=== PATIENT | female | born 1975 | race Caucasian/White ===

== ENCOUNTER → 2021-06-03 11:19 | Outpatient (CLI) | payer MEDICAID, SELFPAY | PROVIDERS: Visit Provider Nurse Practitioner | DX: Z20.822 Contact with and (suspected) exposure to COVID-19 (principal) | CPT/HCPCS: C9803; U0003; U0005 ==

== ENCOUNTER 2022-01-15 08:02 | Emergency (ER) | payer MEDICAID, SELFPAY ==
[2022-01-15 08:10] VITALS: BP 140/91; PULSE 91; RESP 19; TEMP 37; O2SAT 98; BMI 22.2
--- NOTE | 2022-01-15 08:10 | XR_ITS ---
FINAL REPORT CLINICAL HISTORY: pain FINDINGS: RIGHT SHOULDER Three views demonstrate no acute fracture or dislocation. The visualized joint spaces are normally aligned. The soft tissues are unremarkable. IMPRESSION: No acute process. Reviewed, Interpreted and Dictated by Sunny Matthews MD Transcribed by Vandana Smith Authenticated and [facility]
--- NOTE | 2022-01-15 08:39 | HMH.EDUTC ---
[facility] [place] Disposition Clinical Impression: Shoulder strain Qualifiers: Encounter type: initial encounter Laterality: right Qualified Code(s): S46.911A - Strain of unspecified muscle, fascia and tendon at shoulder and upper arm level, right arm, initial encounter Disposition: Home, Self-Care Condition on Discharge: Good Instructions: DI for Shoulder Pain, DI for Muscle Spasm Additional Instructions: *Ibuprofen sarah 6 hours with meal as needed for pain/inflammation if you can take it if not you may take Tylenol *Not additional anti-inflammatory like motrin, aleve, advil with the above amount of ibuprofen. You can still take Tylenol every 4 hours as needed if you need something else for pain *Ice 20 minutes every 2 hours for the first 48 hours after the initial injury followed by moist heat every 20 minutes 3-4 times a day to affected area *Muscle relaxer every 8 hours as needed for muscle spasms but remember, it WILL cause drowsiness You cannot take it and drive, operate machinery or care for small children. *Keep this area active, no movement leads to more stiffness, However take it easy and avoid heavy lifting pushing or pulling *Follow up with you family doctor if no improvement for further treatment Follow up with Orthopedics if pain continues Prescriptions: Cyclobenzaprine HCl [Flexeril 10mg tablet] 10 mg PO Q8HP PRN #15 tab PRN Reason: Muscle Spasm Transmission Status: Received by [facility] # methylPREDNISolone [Medrol 4mg tab] 4 mg PO DIRECTED #21 tab Transmission Status: Received by [facility] # Referrals: Provider,Referral, MD [Primary Care Provider] - As needed Forms: Work/School Release Medical Decision Making - Tino Inquiry Pt receiving controlled substance: No Tino was queried for this patient: No Vital Signs: 01/15/22 08:10 01/15/22 08:55 Temperature 98.6 F 98.6 F Temperature Source Oral Pulse Rate 91 H Pulse Rate [Right Brachial] 91 H Respiratory Rate 19 19 Blood Pressure 140/91 H Blood Pressure [Right Arm] 140/91 H Blood Pressure Mean [Right Arm] 107 Blood Pressure Source [Right Arm] Automatic Cuff Blood Pressure Position [Right Arm] Sitting 02 Sat by Pulse Oximetry 98 Oxygen Delivery Method Room Air - Radiology Data #1 Image(s): Shoulder Image Reviewed: Yes I reviewed the patient's radiology image Preliminary Findings: No Fracture Seen [facility] [place] HPI - General Stated complaint: rt shoulder pain Time Seen by Provider: 01/15/22 08:39 Mode of Arrival: Ambulatory Source of Information: Patient Limitations: No Limitations Description of Symptoms (Recalled from Triage Doc. by RN): PATIENT STATES SHE FEELS LIKE HER RIGHT SHOULDER IS OUT OF PLACE X 1 MONTH. SHE REPORTS HER BOYFRIEND WAS MASSAGING HER AND PUSHED TOO HARD HEENT Symptoms (Recalled from RN notes): No Resp Symptoms (Recalled from RN notes): No Skin Symptoms (Recalled from RN notes): No MS Symptoms (Recalled from RN notes): Yes Functional Status (Recalled from RN notes): WNL - History of Present Illness Provider Complaint: Patient state that she was 'horsing around and felt like she hurt her shoulder States that she told her boyfriend and he was rubbing it too hard and felt like he caused her shoulder to go out of place for about a month ago States that she has continued to have pain on and off and hurts when she raises it so work made her come in and get it checked - Related Data Previous Rx's Medication Instructions Recorded Cyclobenzaprine HCl [Flexeril 10mg 10 mg PO Q8HP PRN #15 tab 01/15/22 tablet] methylPREDNISolone [Medrol 4mg 4 mg PO DIRECTED #21 tab 01/15/22 tab] Allergies Allergy/AdvReac Type Severity Reaction Status Date / Time naproxen Allergy Verified 05/23/18 16:57 - Worker's Comp Is this a Worker's Comp case?: No [facility] History - Hepatitis A Screen Attestation statement:: This patient has been screened for Hepatitis A risk factors.
[2022-01-15 08:55] VITALS: BP 140/91; PULSE 91; RESP 19; TEMP 37; O2SAT 98
== END 2022-01-15 08:57 | disposition home or self-care (01) ==
PROVIDERS: Emergency Provider Nurse Practitioner
DX: S46.911A Strain of unspecified muscle, fascia and tendon at shoulder and upper arm level, right arm, initial encounter (principal); Z88.6 Allergy status to analgesic agent
CPT/HCPCS: 73030; 99212; G0463

== ENCOUNTER 2022-03-04 13:22 | Emergency (ER) | payer MEDICAID, SELFPAY ==
--- NOTE | 2022-03-04 13:14 | ECG_ITS ---
APPROVED REPORT Exam: Resting ECG HR:87 bpm ECG Measurements Heart Rate 87 AXES HI 157 P 76 QRSd 86 QRS 81 QT 345 T 66 QTc 390 Conclusion SINUS RHYTHM POSSIBLE LEFT ATRIAL ENLARGEMENT [-0.1mV P-WAVE IN V1/V2] POSSIBLE RIGHT VENTRICULAR CONDUCTION DELAY [RSR (QR) IN V1/V2] BORDERLINE ECG UNCONFIRMED REPORT Electronically signed by : Bola Oconnor MD 03/05/2022 11:25:22
[2022-03-04 13:22] VITALS: BP 137/96; PULSE 88; RESP 18; TEMP 37.1; O2SAT 98; BMI 24.8
--- NOTE | 2022-03-04 13:27 | HMH.EDGENADL ---
Discharge Plan Disposition Patient Disposition: Home, Self-Care Condition: Good Prescriptions Prescriptions: No Action cyclobenzaprine 10 MG tablet 10 mg PO Q8HP PRN (Reason: Muscle Spasm) Qty: 15 0RF methylprednisolone 4 MG tablet 4 mg PO DIRECTED Qty: 21 0RF Rx Instructions: Take as directed on package instructions Clinical Impressions Clinical Impression: Chest pain Discharge ED Provider: Larry Zarate General Adult HPI General Chief complaint: Chest Pain Stated complaint: chest pain Time Seen by Provider: 03/04/22 13:28 History of Present Illness HPI narrative: Patient is a 46-year-old female with past medical history of anxiety who presents emergency department for evaluation of chest pain. Chest pain onset was acute, occurring 30 minutes prior to arrival, substernal radiating to left shoulder. Patient states that she has no worse shortness of breath at her baseline as she is a smoker. Patient denies other acute complaints at this time. Related Data Previous Rx's Medication Instructions Recorded cyclobenzaprine 10 mg tablet 10 mg PO Q8HP PRN Muscle Spasm #15 01/15/22 tabs methylprednisolone 4 mg tablet 4 mg PO DIRECTED #21 tabs 01/15/22 Allergies Allergy/AdvReac Type Severity Reaction Status Date / Time naproxen Allergy Verified 05/23/18 16:57 [facility] PFS Social History Smoking Status: Current every day smoker tobacco type: cigarettes alcohol intake: never current occupational status: other ROS Obtained: Yes All systems reviewed & no additional complaints except as documented Physical Exam General General appearance: alert and in no apparent distress Head Head exam: atraumatic and normocephalic Eye Eye exam: Present PERRL and EOMI ENT ENT exam: Present mucous membranes moist Neck Neck exam: Present normal inspection Chest Chest inspection: Present normal inspection, symmetric chest wall rise and tenderness (Midline tenderness to palpation, no overlying bruising or fluctuance.) Respiratory Respiratory exam: Present normal lung sounds bilaterally; Absent respiratory distress Cardiovascular Cardiovascular exam: Present regular rate and normal rhythm Abdominal Exam Abdominal exam: Present soft; Absent tenderness Extremities Exam Extremities exam: Present normal inspection Neurological Exam Neurological exam: Present alert and oriented X3 Psychiatric Psychiatric exam: Present normal affect Skin Skin exam: Present warm and dry Medical Decision Making Tino Inquiry Pt receiving controlled substance: No Vital Signs: 03/04/22 13:22 03/04/22 13:38 Temperature 98.8 F Temperature Source Oral Pulse Rate 79 Pulse Rate [Left Radial] 88 Respiratory Rate 18 Blood Pressure 128/98 H Blood Pressure [Right Arm] 137/96 H Blood Pressure Mean [Right Arm] 109 Blood Pressure Source [Right Arm] Automatic Cuff Blood Pressure Position [Right Arm] Sitting 02 Sat by Pulse Oximetry 98 98 Oxygen Delivery Method Room Air Room Air Lab Data Lab Results 03/04/22 13:25: WBC 7.5, RBC 4.57, Hgb 13.3, Hct 43.1, MCV 94.4, MCH 29.1, MCHC 30.9 L, RDW 12.8, Plt Count 357, MPV 7.6, Neut % (Auto) 58.6, Lymph % (Auto) 33.3, [place] % (Auto) 5.2, Eos % (Auto) 1.8, Baso % (Auto) 1.0, Neut # (Auto) 4.4, Lymph # (Auto) 2.5, [place] # (Auto) 0.4, Eos # (Auto) 0.1, Baso # (Auto) 0.1 03/04/22 13:25: Sodium 142, Potassium 3.8, Chloride 109 H, Carbon Dioxide 26, Anion Gap 10.8, BUN 13, Creatinine 0.60, Estimated Creat Clear 117, Estimated GFR 109, Est GFR ( Amer) 131, Glucose 94, Calcium 9.5, Troponin I < 0.01 Result diagrams: 03/04/22 13:25 03/04/22 13:25 Orders (Tests/Meds): ED MEDICATIONS Generic Name Dose Route Start Last Admin Trade Name Freq PRN Reason Stop Dose Admin Sodium Chloride 10 ml 03/04/22 13:28 Sodium Chloride 0.9% 10ml Flush Syringe IV 04/03/22 13:27 NEEDED PRN Maintain IV Site Discontinued
[2022-03-04 13:28] VITALS: BMI 24.8
--- NOTE | 2022-03-04 13:28 | XR_ITS ---
FINAL REPORT CLINICAL HISTORY: chest pain COMPARISON: May 23, 2018 FINDINGS: Two views of the chest were obtained. The heart size and pulmonary vascularity are within normal limits. The mediastinum is normal. No acute pulmonary abnormality is identified. There is no pneumothorax. The bony thorax is intact. IMPRESSION: No active cardiopulmonary disease. Reviewed, Interpreted and Dictated by Agustin Tim III, MD Transcribed by Vandana Smith Authenticated and [facility]
[2022-03-04 13:38] VITALS: BP 128/98; PULSE 79; O2SAT 98
[2022-03-04 14:06] LABS: Basophils # 0.1 K/mm3 (0-0.2); Eosinophils # 0.1 K/mm3 (0.0-0.4); Eosinophils % 1.8 % (0.1-12.0); Hematocrit 43.1 % (37.0-47.0); Hemoglobin 13.3 g/dL (12.2-16.2); Lymphocytes # 2.5 K/mm3 (0.7-4.5); Lymphocytes % 33.3 % (10-50); Mean Corpuscular HGB Conc 30.9 g/dL (31.8-35.4); Mean Corpuscular Hemoglobin 29.1 pg (27.0-31.2); Mean Corpuscular Volume 94.4 fl (81-99); Mean Platelet Volume 7.6 fl (7.4-10.4); Monocytes # 0.4 K/mm3 (0.1-1.0); Monocytes % 5.2 % (1.7-9.3); Neutrophils # 4.4 K/mm3 (1.8-7.8); Neutrophils % 58.6 % (37.0-80.0); Platelet Count 357 K/mm3 (142-424); Red Blood Count 4.57 M/mm3 (4.20-5.40); Red Cell Distribution Width 12.8 % (11.5-17.5); White Blood Count 7.5 K/mm3 (4.8-10.8)
[2022-03-04 14:08] LABS: Chloride 109 mmol/L (98-107); Potassium 3.8 mmoL/L (3.5-5.1); Sodium 142 mmol/L (136-145)
[2022-03-04 14:11] LABS: Anion Gap 10.8 mEq/L (5-15); Blood Urea Nitrogen 13 mg/dl (7-17); Calcium 9.5 mg/dl (8.4-10.2); Carbon Dioxide 26 mmol/L (22.0-30.0); Creatinine Clearance Estimated 117 mL/min (50-200); Estimated Glomerular Filt Rate 109 ml/min (>60); GFR (African American) 131 ML/MIN (>60); Glucose 94 mg/dl (74-100)
[2022-03-04 14:28] LABS: Troponin I < 0.01 ng/ml (0.00-0.034)
--- NOTE | 2022-03-04 14:47 | PC.NURSE ---
Checked on patient to see if she had any needs. Only request was for a warm blanket, pt was given a warm blanket and repositioned; No other needs at this time;
[2022-03-04 16:00] VITALS: BP 133/93; PULSE 63; O2SAT 100
[2022-03-04 16:30] VITALS: BP 138/95; PULSE 62
--- NOTE | 2022-03-04 17:06 | ECG_ITS ---
APPROVED REPORT Exam: Resting ECG HR:63 bpm ECG Measurements Heart Rate 63 AXES PA 169 P 58 QRSd 95 QRS 50 QT 409 T 51 QTc 416 Conclusion SINUS RHYTHM WITH SINUS ARRHYTHMIA INCOMPLETE RIGHT BUNDLE BRANCH BLOCK [90+ ms QRS DURATION, TERMINAL R IN V1/V2, 40+ ms S IN I/aVL/V4/V5/V6] BORDERLINE ECG UNCONFIRMED REPORT Electronically signed by : Bola Oconnor MD 03/05/2022 11:25:16
[2022-03-04 17:40] VITALS: BP 115/77; PULSE 64; PULSE 70; O2SAT 99
--- NOTE | 2022-03-04 17:53 | HMH.EDGENADL ---
Discharge Plan Disposition Patient Disposition: Home, Self-Care Condition: Good Prescriptions Prescriptions: No Action cyclobenzaprine 10 MG tablet 10 mg PO Q8HP PRN (Reason: Muscle Spasm) Qty: 15 0RF methylprednisolone 4 MG tablet 4 mg PO DIRECTED Qty: 21 0RF Rx Instructions: Take as directed on package instructions Clinical Impressions Clinical Impression: Chest pain Stand Alone Forms Stand Alone Forms: Work/School Release Discharge ED Provider: Larry Zarate General Adult HPI General Chief complaint: Chest Pain Stated complaint: chest pain Time Seen by Provider: 03/04/22 13:28 Mode of Arrival: Ambulatory Source of Information: Patient Limitations: No Limitations Description of Symptoms (Recalled from ER Triage Doc. by RN): c/o chest pain that goes down her left arm that started prior to arrival History of Present Illness HPI narrative: Patient is a 46-year-old female with past medical history of anxiety who presents the emergency department for evaluation of chest pain. Onset was acute, substernal, radiating to her left shoulder. No shortness of breath, no other acute complaints at this time. Related Data Previous Rx's Medication Instructions Recorded cyclobenzaprine 10 mg tablet 10 mg PO Q8HP PRN Muscle Spasm #15 01/15/22 tabs methylprednisolone 4 mg tablet 4 mg PO DIRECTED #21 tabs 01/15/22 Allergies Allergy/AdvReac Type Severity Reaction Status Date / Time naproxen Allergy Verified 05/23/18 16:57 [facility] Social History (Updated 03/04/22 @ 17:21 by Larry Zarate MD) Smoking Status: Current every day smoker tobacco type: cigarettes alcohol intake: never current occupational status: other Travel in the last 8 weeks: None ROS Obtained: Yes All systems reviewed & no additional complaints except as documented Physical Exam General General appearance: alert and in no apparent distress Head Head exam: atraumatic and normocephalic Eye Eye exam: Present PERRL and EOMI ENT ENT exam: Present mucous membranes moist Neck Neck exam: Present normal inspection Chest Chest inspection: Present normal inspection, symmetric chest wall rise and tenderness (Mild midline tenderness with no bruising) Respiratory Respiratory exam: Present normal lung sounds bilaterally; Absent respiratory distress Cardiovascular Cardiovascular exam: Present regular rate and normal rhythm Abdominal Exam Abdominal exam: Present soft; Absent tenderness Extremities Exam Extremities exam: Present normal inspection Neurological Exam Neurological exam: Present alert and oriented X3 Psychiatric Psychiatric exam: Present normal affect Skin Skin exam: Present warm and dry Medical Decision Making Tino Inquiry Pt receiving controlled substance: No Vital Signs: 03/04/22 13:22 03/04/22 13:38 03/04/22 16:00 Temperature 98.8 F Temperature Source Oral Pulse Rate 79 63 Pulse Rate [Left Radial] 88 Respiratory Rate 18 Blood Pressure 128/98 H 133/93 H Blood Pressure [Right Arm] 137/96 H Blood Pressure Mean Blood Pressure Mean [Right Arm] 109 Blood Pressure Source [Right Arm] Automatic Cuff Blood Pressure Position [Right Arm] Sitting 02 Sat by Pulse Oximetry 98 98 100 Oxygen Delivery Method Room Air Room Air Room Air 03/04/22 16:30 03/04/22 17:40 03/04/22 18:10 Temperature 98.8 F Temperature Source Pulse Rate 62 64 70 Pulse Rate [Left Radial] Respiratory Rate 18 Blood Pressure 138/95 H 115/77 115/77 Blood Pressure [Right Arm] Blood Pressure Mean Blood Pressure Mean [Right Arm] Blood Pressure Source [Right Arm] Blood Pressure Position [Right Arm] 02 Sat by Pulse Oximetry 99 Oxygen Delivery Method Room Air Room Air 03/04/22 17:40 Temperature Temperature Source Pulse Rate 70 Pulse Rate [Left Radial] Respiratory Rate Blood Pressure 115/77 Blood Pressure [Right Arm] Blood Pressure Mean 82 Blood Pressure [place]
[2022-03-04 18:10] VITALS: BP 115/77; PULSE 70; RESP 18; TEMP 37.1; O2SAT 99
== END 2022-03-04 18:11 | disposition home or self-care (01) ==
PROVIDERS: Emergency Provider Emergency Medicine
DX: R07.9 Chest pain, unspecified (principal); F41.9 Anxiety disorder, unspecified; F17.210 Nicotine dependence, cigarettes, uncomplicated
CPT/HCPCS: 71046; 80048; 84484; 85025; 93005; 99284

== ENCOUNTER 2022-10-09 09:31 | Emergency (ER) | payer SELFPAY ==
[2022-10-09 09:40] VITALS: BP 145/92; PULSE 77; RESP 18; TEMP 36.8; O2SAT 99; BMI 24.6
--- NOTE | 2022-10-09 10:01 | EXP.UTC ---
Discharge Plan Disposition Patient Disposition: Home, Self-Care Condition: Good Prescriptions Prescriptions: New loratadine 10 mg tablet 10 mg PO DAILY Qty: 30 2RF benzonatate 100 mg capsule 100 mg PO TID PRN (Reason: cough) Qty: 30 0RF Referrals Follow up/Referrals: Provider,Referral, [Primary Care Provider] - See instructions Activity Restrictions/Add. Instructions Additional Instructions/Restrictions: Note provided for work for last night and tonight. Clinical Impressions Clinical Impression: Acute upper respiratory infection Stand Alone Forms Stand Alone Forms: Work/School Release Instructions Patient Instructions: DI for Viral Upper Respiratory Infection -- Adult Discharge ED Provider: Yoko Acosta [facility] HPI General Stated complaint: Cough,Congestion,Headache,Chills,Sore throat Mode of Arrival: Ambulatory Source of Information: Patient Limitations: No Limitations Time Seen by Provider: 10/09/22 10:00 Description of Symptoms (Recalled from Triage Doc. by RN): PATIENT C/O CHILLS, COUGH, SORE THROAT, HEADACHE, AND BODY ACHES SINCE YESTERDAY MORNING HEENT Symptoms (Recalled from RN notes): Yes Resp Symptoms (Recalled from RN notes): Yes Skin Symptoms (Recalled from RN notes): No MS Symptoms (Recalled from RN notes): No Functional Status (Recalled from RN notes): WNL History of Present Illness Provider Complaint: Pt states that starting on Wednesday her throat started getting sore. She reports that she has progressively gotten worse with cough, nasal congestion, chills, and body aches. She reports taking NyQuil last night for her symptoms. Related Data Previous Rx's Medication Instructions Recorded benzonatate 100 mg capsule 100 mg PO TID PRN cough #30 caps 10/09/22 loratadine 10 mg tablet 10 mg PO DAILY #30 tabs 10/09/22 Allergies Allergy/AdvReac Type Severity Reaction Status Date / Time naproxen Allergy Verified 05/23/18 16:57 Worker's Comp Is this a Worker's Comp case?: No [facility] Disclaimer: The information contained in this section may have been updated after the patient was seen, as this information can be updated by other users. Social History (Updated 03/04/22 @ 17:21 by Larry Zarate MD) Smoking Status: Current every day smoker tobacco type: cigarettes alcohol intake: never current occupational status: other Travel in the last 8 weeks: None ROS Obtained: Yes All systems reviewed & no additional complaints except as documented Constitutional Constitutional: Reports as per HPI, Reports body ache, Reports chills and Reports malaise Eyes Eyes: Reports system reviewed and no additional complaints, except as documented ENT Ears, Nose, Mouth, and Throat: Reports otalgia, Reports nasal congestion, Reports nasal discharge, Reports sinus pressure and Reports sore throat Cardiovascular Cardiovascular: Reports system reviewed and no additional complaints, except as documented Respiratory Respiratory: Reports non-productive cough Gastrointestinal Gastrointestingal: Reports system reviewed and no additional complaints, except as documented Genitourinary Female Genitourinary: Reports system reviewed and no additional complaints, except as documented Musculoskeletal Musculoskeletal: Reports system reviewed and no additional complaints, except as documented Integumentary/Breasts Skin/Breast: Reports system reviewed and no additional complaints, except as documented Neurologic Neurologic: Reports system reviewed and no additional complaints, except as documented Endocrine Endocrine: Reports system reviewed and no additional complaints, except as documented Hematologic/Lymphatic Henatologic/Lymphatic: Reports system reviewed and no additional complaints, except as documented Allergic/Immunologic Allergic/Immunologic: Reports system reviewed and no additional complaints, except as documented Physical Exam General General appearance: alert Comment: ill prachi
[2022-10-09 10:08] LABS: UTC Influenza A Antigen Negative (Negative); UTC Strep Screen (Rapid) Negative (Negative)
[2022-10-09 10:09] LABS: UTC Influenza B Antigen Negative (Negative)
[2022-10-09 10:13] VITALS: BP 109/73; PULSE 77; RESP 18; TEMP 36.8; O2SAT 99
== END 2022-10-09 10:19 | disposition home or self-care (01) ==
PROVIDERS: Emergency Provider Nurse Practitioner Family
DX: J06.9 Acute upper respiratory infection, unspecified (principal); F17.210 Nicotine dependence, cigarettes, uncomplicated
CPT/HCPCS: 87804; 87880; 99212; 99214; C9803; G0463; U0003; U0005

== ENCOUNTER 2023-02-09 21:23 | Emergency (ER) | payer SELFPAY ==
--- NOTE | 2023-02-09 21:23 | ECG_ITS ---
APPROVED REPORT Exam: Resting ECG HR:87 bpm ECG Measurements Heart Rate 87 AXES NE 172 P 74 QRSd 92 QRS 75 QT 344 T 69 QTc 388 Conclusion SINUS RHYTHM POSSIBLE LEFT ATRIAL ENLARGEMENT [-0.1mV P-WAVE IN V1/V2] POSSIBLE RIGHT VENTRICULAR CONDUCTION DELAY [RSR (QR) IN V1/V2] BORDERLINE ECG UNCONFIRMED REPORT Electronically signed by : Bola Oconnor MD 02/10/2023 18:32:37
[2023-02-09 21:24] VITALS: BP 134/93; PULSE 89; RESP 20; TEMP 36.7; O2SAT 100; BMI 25.9
--- NOTE | 2023-02-09 21:51 | XR_ITS ---
PROCEDURE INFORMATION: Exam: XR Chest Exam date and time: 02/09/2023 9:50 PM Age: 47 years old Clinical indication: Sternal or substernal pain; Additional info: Cp TECHNIQUE: Imaging protocol: Radiologic exam of the chest. Views: 2 views. COMPARISON: CR XR CHEST 2V 03/04/2022 1:35 PM FINDINGS: Lungs: Unremarkable. No consolidation. Pleural spaces: Unremarkable. No pleural effusion. No pneumothorax. Heart/Mediastinum: Unremarkable. No cardiomegaly. Bones/joints: Unremarkable. Intraperitoneal space: There are right upper quadrant surgical clips suggesting prior cholecystectomy. IMPRESSION: No acute findings.
[2023-02-09 21:58] LABS: Basophils # 0.1 K/mm3 (0-0.2); Basophils % 0.7 % (0.1-2.0); Eosinophils # 0.2 K/mm3 (0.0-0.4); Eosinophils % 1.7 % (0.1-12.0); Hematocrit 42.2 % (37.0-47.0); Hemoglobin 13.6 g/dL (12.2-16.2); Lymphocytes # 3.7 K/mm3 (0.7-4.5); Lymphocytes % 42.1 % (10-50); Mean Corpuscular HGB Conc 32.2 g/dL (31.8-35.4); Mean Corpuscular Hemoglobin 29.3 pg (27.0-31.2); Mean Platelet Volume 7.4 fl (7.4-10.4); Monocytes # 0.5 K/mm3 (0.1-1.0); Monocytes % 6.2 % (1.7-9.3); Neutrophils # 4.3 K/mm3 (1.8-7.8); Neutrophils % 49.4 % (37.0-80.0); Platelet Count 335 K/mm3 (142-424); Red Blood Count 4.64 M/mm3 (4.20-5.40); Red Cell Distribution Width 12.7 % (11.5-17.5); White Blood Count 8.7 K/mm3 (4.8-10.8)
[2023-02-09 22:10] LABS: Alanine Aminotransferase 16 U/L (12-78); Albumin Level 4.4 g/dl (3.5-5.0); Albumin/Globulin Ratio 1.7 (1.1-1.8); Alkaline Phosphatase 66 U/L (38-126); Anion Gap 12.7 mEq/L (5-15); Aspartate Amino Transferase 22 U/L (14-36); Blood Urea Nitrogen 11 mg/dl (7-17); Calcium 8.9 mg/dl (8.4-10.2); Carbon Dioxide 25 mmol/L (22.0-30.0); Chloride 109 mmol/L (98-107); Creatinine Clearance Estimated 100 mL/min (50-200); Estimated Glomerular Filt Rate 90 ml/min (>60); GFR (African American) 109 ML/MIN (>60); Globulin 2.6 g/dL (1.3-3.2); Glucose 92 mg/dl (74-100); Potassium 3.7 mmoL/L (3.5-5.1); Sodium 143 mmol/L (136-145)
--- NOTE | 2023-02-09 22:16 | PC.NURSE ---
PT SLEEPING IN NO NEEDS AT THIS TIME,CALL LIGHT AT BS
[2023-02-09 22:31] VITALS: BP 104/64; PULSE 74; O2SAT 97
[2023-02-09 22:33] LABS: Bilirubin,Total < 0.1 mg/dl (0.2-1.3)
[2023-02-09 22:50] LABS: Troponin I < 0.01 ng/ml (0.00-0.034)
--- NOTE | 2023-02-09 23:02 | PC.NURSE ---
Pt given additional dose of nitro per request, states it did help her chest pain
--- NOTE | 2023-02-09 23:34 | HMH.EDGENADL ---
Discharge Plan Disposition Patient Disposition: Left Against Medical Advice Condition: Good Chief Complaint: Chest Pain Prescriptions Prescriptions: No Action loratadine 10 mg tablet 10 mg PO DAILY Qty: 30 2RF benzonatate 100 mg capsule 100 mg PO TID PRN (Reason: cough) Qty: 30 0RF Referrals Follow up/Referrals: Provider,Referral, [Primary Care Provider] - See instructions Activity Restrictions/Add. Instructions Additional Instructions/Restrictions: You left the emergency department AGAINST MEDICAL ADVICE while your work-up for your chest pain was still pending. Please follow-up closely with your primary care provider. Return to the emergency department for new or worsening symptoms, such as recurrence of chest pain, shortness of breath, lightheadedness, fainting, or other concerns. Clinical Impressions Clinical Impression: Chest pain Instructions Patient Instructions: DI for Atypical Chest Pain, DI for Chest Pain Discharge ED Provider: Lita Harvey General Adult HPI General Chief complaint: Chest Pain Stated complaint: Chest pain Time Seen by Provider: 02/09/23 21:45 Mode of Arrival: Ambulatory Source of Information: Patient Limitations: No Limitations Description of Symptoms (Recalled from ER Triage Doc. by RN): pt reports that 45 mins prior to arrival she was resting on the couch and started having chest pressure and left arm heavy feeling the pt states that she is under alot of stress and has had a prior situation about 10 years ago and was told to follow up with cardio but moved and didnt. History of Present Illness HPI narrative: 47-year-old female reportedly previously healthy presents with sudden onset sharp left-sided chest pain, severe in nature, 45 minutes prior to arrival. Reports 1 prior episode of chest pain many years ago. Reports that she does not see doctors very often and has no medical diagnoses. She reports no significant shortness of breath. Patient also reports that she has been dealing with a lot of social issues recently and has felt under stress. Related Data Previous Rx's Medication Instructions Recorded benzonatate 100 mg capsule 100 mg PO TID PRN cough #30 caps 10/09/22 loratadine 10 mg tablet 10 mg PO DAILY #30 tabs 10/09/22 Allergies Allergy/AdvReac Type Severity Reaction Status Date / Time naproxen Allergy Verified 05/23/18 16:57 [facility] Disclaimer: The information contained in this section may have been updated after the patient was seen, as this information can be updated by other users. Social History (Updated 03/04/22 @ 17:21 by Larry Zarate MD) Smoking Status: Current every day smoker tobacco type: cigarettes alcohol intake: never current occupational status: other Travel in the last 8 weeks: None ROS Obtained: Yes All systems reviewed & no additional complaints except as documented Physical Exam General General appearance: alert and anxious Head Head exam: atraumatic and normocephalic Eye Eye exam: Present normal appearance, PERRL and EOMI ENT ENT exam: Present normal oropharynx and normal external ear exam Neck Neck exam: Present normal inspection and full ROM Chest Chest inspection: Present normal inspection and symmetric chest wall rise; Absent tenderness Respiratory Respiratory exam: Present normal lung sounds bilaterally; Absent respiratory distress Cardiovascular Cardiovascular exam: Present regular rate and normal rhythm Abdominal Exam Abdominal exam: Present soft; Absent distention, tenderness or guarding Extremities Exam Extremities exam: Present normal inspection; Absent edema or joint swelling Back Exam Back exam: Present normal inspection; Absent tenderness Neurological Exam Neurological exam: Present alert and oriented X3; Absent motor sensory deficit Psychiatric Psychiatric exam: Present normal affect and normal mood Skin Skin exam: Present warm, dry and normal color Lymphatic Lymphatic Findin
[2023-02-09 23:36] VITALS: BP 98/66; PULSE 76; RESP 18; TEMP 36.6; O2SAT 99
[2023-02-10 00:23] LABS: D-Dimer 0.39 ug/mL (0.0-0.5)
== END 2023-02-09 23:41 | disposition left against medical advice (07) ==
PROVIDERS: Emergency Medicine; Emergency Provider Emergency Medicine
DX: R07.9 Chest pain, unspecified (principal); M79.602 Pain in left arm; F17.210 Nicotine dependence, cigarettes, uncomplicated
CPT/HCPCS: 71046; 80053; 84484; 85025; 85378; 93005; 99285